=== PATIENT | female | born 1975 | race Caucasian/White ===

== ENCOUNTER 2021-04-12 11:05 | Day surgery (SDC) | payer OTHER ==
[2021-04-12] VITALS (10 sets, daily range): BP systolic 95–134; BP diastolic 66–91; PULSE 74–97; TEMP 98.1
[~2021-04-12] VITALS: Ht 160 cm; Wt 139.8 kg
[2021-04-12] MEDS ORDERED: BETAPACE 120MG120 MG PO (12:48)
[2021-04-12] MEDS ORDERED: ASPIRIN E.C. 8181 MG PO (12:48)
[2021-04-12] MEDS ORDERED: COLACE 100100 MG/CAP PO (12:49)
[2021-04-12] MEDS ORDERED: PREVACID 30MG30 M1 PO (12:50)
[2021-04-12] MEDS ORDERED: ZYRTEC 10MG10 MG PO (12:50)
[2021-04-12 12:57] LABS: MEAN CORPUSCULAR HEMOGLOBIN 20 pg (27-31); MEAN PLATELET VOLUME 10.2 fl (7.4-10.4); PLATELET COUNT 324 K/mm3 (130-400); RED BLOOD COUNT 5.01 M/mm3 (4.10-5.30)
[2021-04-12 13:08] LABS: INR 1.1 (0.8-3.0); PROTHROMBIN TIME 12.4 SECONDS (9.7-12.8)
[2021-04-12 13:10] LABS: PARTIAL THROMBOPLASTIN TIME 27.2 SECONDS (26.0-37.0)
[2021-04-12 13:12] LABS: CALCIUM 9.5 mg/dL (8.4-10.2); CREATININE, serum 0.78 mg/dL (0.57-1.11); POTASSIUM 4.6 mmol/L (3.5-4.5)
[2021-04-12 13:24] LABS: HEMATOCRIT 34.8 % (37.0-47.0)
[2021-04-12 13:25] LABS: MEAN CELL VOLUME 70 fl (80.0-100.0)
[2021-04-12 13:26] LABS: MEAN CORPUSCULAR HGB CONC 29 g/dl (33.0-37.0)
--- NOTE | 2021-04-12 15:00 | NUR ---
SEE MERGE FOR ALL MEDICATION ADMINISTRATION TIMES/DOSAGES AND INTRA/POST SEDATION ASSESSMENTS.
--- NOTE | 2021-04-12 15:34 | NUR ---
Pt is back to [facility] from [employer]. Report received from Minna PÉREZ. Pt is awake and alert, pwd, afib on monitor rate 70's-80's at this time. telemetry initiated. tr band to rt wrist, cms intact distal. at bedside.
--- NOTE | 2021-04-12 18:00 | NUR ---
Pt did well during her recovery. TR band has been deflated with no problem. site dressed with bandaid, folded 2x2 and coban. Pt is up and ambulatory with steady gait. There is no dizziness etc. I reviewed dc/fu instructions with pt who verbalized understanding. Pt is escorted to exit via wheelchair.
== END 2021-04-12 18:22 | disposition home or self-care (01) ==
LOC: COL.CAR 11:05
PROVIDERS: Internal Medicine Cardiovascular Disease
DX: I20.8 Other forms of angina pectoris (principal); I47.2 Ventricular tachycardia; I10 Essential (primary) hypertension; I48.91 Unspecified atrial fibrillation; I45.89 Other specified conduction disorders; Z95.810 Presence of automatic (implantable) cardiac defibrillator
CPT/HCPCS: J1200; J1644; J2250; J3010; J7030; Q9967